=== PATIENT | female | born 1935 | race Two or more races ===

== ENCOUNTER 2018-10-14 21:55 | Inpatient (IN) | payer OTHER ==
[~2018-10-14] VITALS: Ht 160 cm; Wt 82.6 kg
[~2018-10-14 21:55] MED LIST: BYSTOLIC10 M1 PO; CALTRATE; CENTRUM SILVER; COL100 PO; COZ50 PO; ECO81 PO; FER300 PO; FLO4 PO; FOL1 PO; FOS10 PO; GLU500 PO; HUMULIN R100 U/1 M1 SC; HYDRALAZINE HCL25 MG PO; L20 PO; METOPROLOL TART25 M1 PO; NEBIVOLOL PO; THERAGRAN-M1 TA4 PO; VESICARE5 M1 PO; VITAMIN B121000 MC3 PO; VITC PO; ZOC20 PO; [UNRECOGNIZED DRUG - CODE] IV
--- NOTE | 2018-10-14 22:32 | NUR ---
PT RESTING IN BED, SMILING WITH NO SIGNS OF DISTRESS AT THIS TIME. PT BIB [facility] FROM HOME S/P ASSIST TO FLOOR BY FAMILY AND PREVIOUS FALL TODAY. PER FAMILY, PT NOTED WITH INCREASED GENERALIZED WEAKNESS AND CONFUSION. PT NOTED TO BE CONFUSED, ABLE TO ANSWER QUESTIONS AND FOLLOW COMMANDS. PT WITH HX OF DEMENTIA. PT ALSO NOTED WITH GENERALIZED WEAKNESS. FAMILY AT BEDSIDE.
[2018-10-14 23:18] LABS: BASOPHIL % 0.1 % (0-2); PLATELET COUNT 241 x10^3mcL (130-400)
[2018-10-14 23:19] LABS: CARBON DIOXIDE 28.5 mmol/L (21-32); CHLORIDE SERUM 104 mmol/L (98-107); CREATININE SERUM 0.8 mg/dL (0.6-1.0); GLUCOSE SERUM 144 mg/dL (74-106); POTASSIUM SERUM 3.9 mmol/L (3.5-5.1); SODIUM SERUM 139 mmol/L (136-145)
--- NOTE | 2018-10-14 23:21 | NUR ---
STRAIGHT CATH DONE FOR URINE SAMPLE WITH TING CHAPARRO.
[2018-10-14 23:24] LABS: ALBUMIN 3.6 g/dL (3.4-5.0); ALKALINE PHOSPHATASE 56 U/L (46-116); ALT/SGPT 20 U/L (14-59); AST/SGOT 13 U/L (15-37); BILIRUBIN TOTAL 0.47 mg/dL (0.20-1.00); HDL CHOLESTEROL 45 mg/dL (40-60); MAGNESIUM 1.9 mg/dL (1.8-2.4); PHOSPHOROUS 2.9 mg/dL (2.5-4.9); TOTAL PROTEIN, SERUM 7.2 g/dL (6.4-8.2)
[2018-10-14 23:25] LABS: microscopic required? NO
[2018-10-14 23:26] LABS: CHOLESTEROL 125 mg/dL (<200)
[2018-10-14 23:28] LABS: RED CELL DISTRIBUTION WIDTH 15.8 % (11.5-14.5)
[2018-10-15 00:01] LABS: urine erythrocyte NEGATIVE (NEGATIVE)
--- NOTE | 2018-10-15 00:22 | NUR ---
PT OFF OF UNIT TO RADIOLOGY VIA [facility].
--- NOTE | 2018-10-15 01:45 | NUR ---
PT RESTING IN BED WITH FAMILY AT BEDSIDE WITH NO SIGNS OF DISTRESS AT THIS TIME.
--- NOTE | 2018-10-15 02:02 | NUR ---
REPORT GIVEN TO CHANELLE CHAPARRO.
[2018-10-15 02:18] LABS: CHOLESTEROL/HDL RATIO 2.8
--- NOTE | 2018-10-15 02:20 | NUR ---
RECEIVED FROM ER, TRANSPORTED VIA [facility]. AWAKE AND ALERT, PRIMARILY GUJARAT/HERON SPEAKING, BUT ABLE TO STATE NAME AND WHERE SHE WAS WHEN ASKED IN [place]. DAUGHTER HELPED WITH TRANSLATION. PT HAS HX OF DEMENTIA. ADMITTED DUE TO GENERALIZED WEAKNESS, PER DAUGHTER FELL TWICE AT HOME. BREATHING EVEN AND UNLABORED ON ROOM AIR, LUNG SOUNDS CLEAR. SALINE LOCKT RIGHT FOREARM, FLUSHED WELL. NOTED +2 PITTING EDEMA TO BLE. NOTED ERYTHEMA TO RIGHT LOWER EXTREMITY. PHOTODOCUMENTATION TAKEN. PLACED BED ALARM ON. ORIENTED TO ROOM ENVIRONMENT, INSTRUCTED ON USE OF CALL LIGHT TO CALL FOR ASSISTANCE, PLACED WITHIN EASY REACH. HOB ELEVATED 30 DEG. UPPER SIDE RAILS RAISED, BED IN LOWEST POSITION.
[2018-10-15 02:25] LABS: FREE T4 1.31 ng/dL (0.76-1.46); FREE THYROXINE INDEX 3.9 ug/dL (1.4-4.5); T4(THYROXINE) 11.2 ug/dL (4.7-13.3)
--- NOTE | 2018-10-15 02:30 | NUR ---
PT TRANSFERRED TO TELE BED 250B VIA VI WITH RN TING AND EMT FERNIE. PT TRANSFERRED WITHOUT INCIDENCE.
[2018-10-15 02:49] VITALS: BP 122/47
[2018-10-15 02:58] LABS: T3 TOTAL 1.02 ng/mL
--- NOTE | 2018-10-15 03:05 | NUR ---
CALLED [facility] OF LAB, ASKED TO ADD URINE CULTURE TEST TO URINE SPECIMEN.
--- NOTE | 2018-10-15 03:16 | NUR ---
DUE CEFTRIAXONE ADMINISTERED IVPB. FAMILY MEMBERS EARLIER LEFT. PT VOIDED, ANGELA CAMACHO ATTENDED TO HER HYGIENE NEEDS. PT SPEAKING IN FRISIAN.
[2018-10-15 04:55] VITALS: BP 139/62
--- NOTE | 2018-10-15 06:18 | NUR ---
AWAKE AND ALERT, OBEYS COMMANDS. BREATHING EVEN AND UNLABORED ON ROOM AIR. SITTING ON BED. INSTRUCTED NOT TO GET OUT OF BED. VERBALIZED UNDERSTANDING. REINFORCED NEED TO USE CALL LIGHT TO CALL FOR ASSISTANCE. PLACED WITHIN EASY REACH. DEMONSTRATED USE OF CALL LIGHT. BED ALARM ON.
--- NOTE | 2018-10-15 06:19 | NUR ---
IVF INFUSING WELL. IV SITE FREE FROM ERYTHEMA OR SWELLING.
[2018-10-15 06:27] LABS: BASOPHIL % 0.2 % (0-2); PLATELET COUNT 236 x10^3mcL (130-400)
[2018-10-15 06:34] LABS: RED CELL DISTRIBUTION WIDTH 15.9 % (11.5-14.5)
[2018-10-15 06:35] LABS: CALCIUM 8.8 mg/dL (8.5-10.1); CARBON DIOXIDE 31.2 mmol/L (21-32); CHLORIDE SERUM 104 mmol/L (98-107); CREATININE SERUM 0.7 mg/dL (0.6-1.0); GLUCOSE SERUM 113 mg/dL (74-106); POTASSIUM SERUM 3.6 mmol/L (3.5-5.1); SODIUM SERUM 142 mmol/L (136-145)
--- NOTE | 2018-10-15 06:46 | NUR ---
OBEYED INSTRUCTIONS NOT TO GET UP, SITTING ON SIDE OF BED. BED ALARM ON. ASKED FOR TEA AND FABRICIO CRACKERS. PROVIDED. CALL LIGHT WITHIN EASY REACH.
[2018-10-15 08:00] VITALS: BP 157/85
--- NOTE | 2018-10-15 08:00 | NUR ---
AWAKE,ALERT AND ABLE TO VERBALIZED NEEDS. C/O GEN./ WEAKNESS AND NOTED SHAYNE. LOWER EXT. 3+ SWOLLEN, INSTRUCTED TO ELEVATE HER SHAYNE. LOWER EXTR. W/ PILLOWS AND PT. VERBALIZED UNDERSTANDING OF TEACHING GIVEN.REQUIRES. MOD. ASSIST. W/ ADL NEEDS.WILL CONT. PLAN OF CARE.CALL LIGHT W/ IN REACH.NO ACUTE DISTRESS NOTED.
[2018-10-15 12:14] VITALS: BP 116/80
--- NOTE | 2018-10-15 15:46 | NUR ---
PT. RESTING COMFORTABLY IN BED. DENIES ANY PAIN AT THIS TIME.
[2018-10-15 16:00] VITALS: BP 155/70
--- NOTE | 2018-10-15 18:45 | NUR ---
DENIES PAIN THE WHOLE DAY ,NO ACUTE DISTRESS NOTED
--- NOTE | 2018-10-15 19:35 | NUR ---
AWAKE AND ALERT, EATING DINNER. ON HIGH FOWLERS. FAMILY MEMBERS IN ROOM. PT BREATHING EVEN AND UNLABORED ON ROOM AIR. SCDS TO BLE. IVF OF NS AT 70ML/HR. COMMODE AT BEDSIDE.
[2018-10-15 21:05] VITALS: BP 140/59
--- NOTE | 2018-10-16 00:04 | NUR ---
EYES CLOSED, BREATHING EVEN AND UNLABORED ON ROOM AIR. HOB ELEVATED 30 DEG. UPPER SIDE RAILS KEPT RAISED, BED IN LOWEST POSITION. CALL LIGHT WITHIN EASY REACH.
--- NOTE | 2018-10-16 00:33 | NUR ---
AWAKE, CONFUSED. BED ALARM ON. REPOSITIONED IN BED. PAD WET. HYGIENE CARE DONE BY ANGELA CHU.
--- NOTE | 2018-10-16 01:58 | NUR ---
EYES CLOSED, BREATHING EVEN AND UNLABORED ON ROOM AIR. BED ALARM ON. CALL LIGHT WITHIN EASY REACH.
[2018-10-16 06:15] LABS: CALCIUM 9.1 mg/dL (8.5-10.1); CARBON DIOXIDE 31.2 mmol/L (21-32); CHLORIDE SERUM 106 mmol/L (98-107); CREATININE SERUM 0.7 mg/dL (0.6-1.0); GLUCOSE SERUM 125 mg/dL (74-106); POTASSIUM SERUM 4.1 mmol/L (3.5-5.1); SODIUM SERUM 143 mmol/L (136-145)
--- NOTE | 2018-10-16 06:15 | NUR ---
ANGELA CHU GAVE BED BATH, CHANGED GOWN AND LINEN
--- NOTE | 2018-10-16 06:19 | NUR ---
EYES CLOSED, BREATHING EVEN AND UNLABORED. EARLIER WOKE UP WHEN BLOOD SUGAR CHECK DONE. CALM. CALL LIGHT WITHIN EASY REACH. BED ALARM ON.
[2018-10-16 06:24] LABS: BASOPHIL % 0.2 % (0-2); PLATELET COUNT 227 x10^3mcL (130-400)
[2018-10-16 06:40] VITALS: BP 156/54
--- NOTE | 2018-10-16 07:07 | NUR ---
AWAKE AND ALERT, BREATHING EVEN AND UNLABORED. CALM. CALL LIGHT WITHIN EASY REACH. ENDORSED TO NURSE FATUMA
--- NOTE | 2018-10-16 07:20 | NUR ---
AAO X2.FORGETFUL.HERON SPEAKING MOSTLY.DENIES ANY PAIN/DISCOMFORT.LUNGS CLEAR.PT NONE TELE.IVF NS GOING AT 70 ML/HR INFUSING WELL.CALL LIGHT WITHIN REACH.INSTRUCTED TO CALL FOR ANY PAIN/DISCOMFORT.WILL CONTINUE TO MONITOR PT.
[2018-10-16 08:52] VITALS: BP 172/66
[2018-10-16 12:18] VITALS: BP 141/67
[2018-10-16 13:38] VITALS: BP 141/67
--- NOTE | 2018-10-16 14:29 | NUR ---
RECEIVED ,CHARGE NURSE THAT PT IS ACCEPTED IN [facility]. PER HEMANT PT'S DAUGHTER WILL TOUR [facility] AND WILL LET US KNOW IF THEY LIKE THE FACILITY OR NOT.
--- NOTE | 2018-10-16 15:33 | NUR ---
DAUGHTER AT BEDSIDE.INFORMED RN THAT SHE WENT TO [facility] TO CHECK THE FACILITY.WANTED TO TALK TO CORRECTIONS OFFICER REJI.ALSO ASKED HER IF SHE WANTED FOR PT TO BE TRANSFERRED TODAY, PER DAUGHTER PREFERS FOR PT TO GO TOMORROW AFTER PHYSICAL THERAPY.
--- NOTE | 2018-10-16 16:10 | NUR ---
REJIPROBATION AGENT CAME TO TALK TO PT'S DAUGHTER. PER REJI PT WILL GO TOMORROW AFTER PT IS WALKED BY PHYSICAL THERAPY.
[2018-10-16 17:01] VITALS: BP 154/73
--- NOTE | 2018-10-16 18:16 | NUR ---
NO SIGNIFICANT CHANGE NOTED.WILL ENDORSE TO NEXT SHIFT.
--- NOTE | 2018-10-16 19:49 | NUR ---
RECIEVED PT IN BED. PT A/O X2. ABLE TO VERBALIZE NEEDS AND FOLLOW SIMPLE COMMANDS. BREATHING EVEN AND UNLABORED. BS ACTIVE. CALL LIGHT WITHIN REACH. BED ALARM IN [place]. SCDS IN PLACE. BED IN LOWEST POSITION WILL CONTINUE TO MONITOR.
[2018-10-16 21:15] VITALS: BP 162/82
--- NOTE | 2018-10-16 21:35 | NUR ---
PT REFUSING ALL MEDS AT THIS TIME. FAMILY MEMBER CALLED TO TALK TO PT ABOUT TAKING MEDICATIONS.
[2018-10-17] VITALS (8 sets, daily range): BP systolic 122–197; BP diastolic 57–84; Ht 160 cm; Wt 82.6 kg
--- NOTE | 2018-10-17 01:47 | NUR ---
DR. NAVA NOTIFIED OF BP 197/78. WILL CARRY OUT ORDERS WHEN AVALIABLE.
--- NOTE | 2018-10-17 02:04 | NUR ---
PT PLACED ON TELE MONITOR 12 ORDERED. READING SR HR 72.
--- NOTE | 2018-10-17 02:24 | NUR ---
HYDRALAZINE GIVEN IVP SLOWLY WITNESSED BY RN, CHANELLE. WILL CONTINUE TO MONITOR.
--- NOTE | 2018-10-17 02:55 | NUR ---
PT FOUND WITH IV CATH OUT. PT REFUSED TO ANOTHER IV ACCESS. DR. NAVA MADE AWARE. WILL CONTINUE TO MONITOR.
--- NOTE | 2018-10-17 03:44 | NUR ---
PT TRYING TO GET OUT OF BED. USED WOUND SPECIALIST. [employer] TEACHER TREASURE CALL BACK EX. [phone]. TRANSLATED TO PT THAT SHE MUST STAY IN BED FOR HER SAFETY. PT REORIENTED BACK TO BED.
--- NOTE | 2018-10-17 06:32 | NUR ---
PT CHANGED AND REPOSITION. RESTING IN BED. NO S/SX OF DISTRESS AT THIS TIME. BED ALARM ON. BED IN LOW POSITION. CALL LIGHT WITHIN REACH. SIDE RAILS UP X2. WILL ENDORSE CARE TO ON COMING NURSE.
--- NOTE | 2018-10-17 07:58 | NUR ---
ASSUMED CARE OF PATIENT. ALERT AND ORIENTED X2 WITH PERIODS OF CONFUSION. NO COMPLAINTS OF PAIN OR DISCOMFORT. S1 AND S2 SOUNDS NOTED. +1 PITTING EDEMA TO BLE. LUNG SOUNDS CLEAR BILATERALLY, NO ADVENTITIOUS SOUNDS NOTED. BOWEL SOUNDS PRESENT IN ALL 4 QUADRANTS. GENERALIZED WEAKNESS, FALL RISK. ERYTHEMA TO RIGHT LEG NOTED. NO IV PRESENT. BED LOCKED AND IN LOWEST POSITION WITH BED ALARM ON. NONSKID SOCKS IN PLACE. CALL LIGHT WITHIN REACH. WILL CONTINUE TO MONITOR.
--- NOTE | 2018-10-17 08:53 | NUR ---
PATIENT SPEAKS NO SLOVAK, ONLY AMISH. UTILIZED TELEPHONE TRANSLATION SERVICES, PATIENT HAD QUESTIONS REGARDING WHAT MEDICATIONS SHE WAS TAKING, ANSWERED THEM FULLY. PATIENT ABLE TO SWALLOW PILLS ONE AT A TIME WITH NO ISSUE.
--- NOTE | 2018-10-17 10:27 | NUR ---
PATIENT SEEN RESTING IN ROOM. NO NEW COMPLAINTS. UTILIZED TRANSLATION SERVICES; PATIENT CONFUSED BUT REORIENTED TO SITUATION. PATIENT POSITIONED BACK INTO BED. NO NEW ISSUES.
--- NOTE | 2018-10-17 11:36 | NUR ---
BS 104. NO COVERAGE PROVIDED.
--- NOTE | 2018-10-17 14:00 | NUR ---
PATIENT RECIEVED SHOWER CARE.
--- NOTE | 2018-10-17 17:01 | NUR ---
PATIENT SEEN SITTING IN ROOM. NO APPARENT DISTRESS NOTED.
--- NOTE | 2018-10-17 17:45 | NUR ---
PATIENT REFUSING INSULIN.
--- NOTE | 2018-10-17 18:53 | NUR ---
PATIENT SEEN RESTING COMFORTABLY IN CHAIR. NO APPARENT DISTRESS NOTED. WILL HAND OFF TO NEXT RN.
--- NOTE | 2018-10-17 19:09 | NUR ---
PT RECIEVED FROM THE DAY SHIFT RN, PT IS ALERT AND ORIENTED X2, ORIENTED TO PERSON AND PLACE, NO ACUTE DISTRESS NOTED AT THIS TIME. AT THE BEDSIDE, PT IS HERON SPEAKING ONLY, SAFETY AND COMFORT MEASURES MAINTAINED, BED IN LOWEST POSITION, CALL LIGHT WITHIN REACH, WILL CONTINUE TO MONITOR AT THIS TIME.
--- NOTE | 2018-10-18 00:16 | NUR ---
PT IS RESTING IN BED WITH EYES CLOSED AT THIS TIME. NO ACUTE DISTRESS NOTED. SAFETY AND COMFORT MEASURES MAINTAINED, BED IN LOWEST POSITION, CALL LIGHT WITHIN REACH, WILL CONTINUE TO MONITOR AT THIS TIME.
--- NOTE | 2018-10-18 05:44 | NUR ---
PT HAS RESTED IN LONG INTERVALS THROUGHOUT THE SHIFT. NO ACUTE DISTRESS NOTED. PT HAS BEEN AGITATED AT TIMES AND CONFUSED. PT IS ALERT AND ORIENTED TO PERSON AND PLACE. PT IS HERON SPEAKING ONLY. CONCRETE BLOCK LAYER PHONE USED TO COMMUNICATE WITH PATIENT. PT NEEDS HAVE BEEN MET. PT AT THIS TIME IS AWAKE AND CONFUSED. BED ALARM IN PLACE. SAFETY AND COMFORT MEASURES MAINTAINED, NO IV ACCESS AT THIS TIME DUE TO PT REFUSAL OF NEW IV INSERTION, DR NAVA MADE AWARE. PT HAS OTHERWISE BEEN CALM AND COOPERATIVE WITH CARE. CALL LIGHT WITHIN REACH, WILL ENDORSE CONTINUITY OF CARE TO THE ONCOMING RN. WILL CONTINUE TO MONITOR AT THIS TIME.
[2018-10-18 06:01] VITALS: BP 169/51
[2018-10-18 06:29] LABS: CALCIUM 9.1 mg/dL (8.5-10.1); CARBON DIOXIDE 28.6 mmol/L (21-32); CHLORIDE SERUM 104 mmol/L (98-107); CREATININE SERUM 0.7 mg/dL (0.6-1.0); GLUCOSE SERUM 118 mg/dL (74-106); MAGNESIUM 2.2 mg/dL (1.8-2.4); SODIUM SERUM 141 mmol/L (136-145)
[2018-10-18 06:48] LABS: BASOPHIL % 0.6 % (0-2); PLATELET COUNT 269 x10^3mcL (130-400)
[2018-10-18 06:49] LABS: RED CELL DISTRIBUTION WIDTH 15.8 % (11.5-14.5); rbc morphology (normal/abnorm) ABNORMAL (NORMAL)
[2018-10-18 08:43] VITALS: BP 139/76
--- NOTE | 2018-10-18 09:21 | NUR ---
AT 0705 - RECEIVED PATIENT FROM NIGHT NURSE. SLEEPING. RESPIRATIONS REGULAR. AT 0800 - PATIENT AWAKE, ALERT AND APPEARS CALM AT THIS TIME. REPOSITIONED IN BED AND SAT UP FOR BREAKFAST. AT 0840 - PATIENT REFUSED TO EAT BREAKFAST, BUT DID TAKE SCHEDULED MEDICATIONS WITH ENCOURAGEMENT AND SOME APPLE SAUCE AND CRACKERS. PATIENT IS FOR DISCHARGE TO [facility] TODAY.
[2018-10-18 10:47] VITALS: BP 139/76
--- NOTE | 2018-10-18 10:50 | NUR ---
RECEIVED CALL FROM CASE MANAGEMENT. PATIENT TO BE DISCHARGED TO [facility] VIA MEDICAL TRANSPORT WITH [facility]. TRANSPORT TIME BETWEEN 1330 AND 1430 THIS AFTERNOON. PATIENT GOING TO ROOM 23
--- NOTE | 2018-10-18 11:19 | NUR ---
COPIES OF PRINTED DISCHARGE INSTRUCTIONS GIVEN AND EXPLAINED TO PATIENT'S DAUGHTER FREDRICK. TRANSFER ACKNOWLEDGEMENT SIGNED BY DAUGHTER.
--- NOTE | 2018-10-18 13:58 | NUR ---
AT 1210 - PHYSICAL THERAPY WITH PATIENT. AMBULATED IN HALLWAY USING WALKER. HAS BEEN SITTING OUT OF BED IN CHAIR. AT 1345 - REPORT GIVEN TO NURSE AT [facility]. PATIENT PREPARED FOR DISCHARGE. TAKEN OFF CARDIAC MONITORING. DAUGHTER REMAINS WITH PATIENT.
--- NOTE | 2018-10-18 14:34 | NUR ---
DISCHARGED TO [facility]IA [facility]. PATIENT'S DAUGHTER LEFT WITH PATIENT.
--- NOTE | 2018-10-18 17:02 | NUR ---
PHYSICAL THERAPY DAILY NOTES CO-SIGN All documentation done by the Assistant Dean Of Students for 10/18/18 has been reviewed. I agree with the documentation. Reviewed/Co-Signed by: Lynne Valdivia PT Documentation Done by:JEB GARCIA [facility]
== END 2018-10-18 14:35 | DRG 73 ==
LOC: ED 21:55 → DU 10-15 01:21 → MU 10-15 01:21 → DU 10-15 02:45 → MU 10-16 06:28 → DU 10-17 05:17
PROVIDERS: Emergency Medicine; Family Medicine; ADMIT Internal Medicine
DX: G90.9 Disorder of the autonomic nervous system, unspecified (principal); G93.41 Metabolic encephalopathy; N39.0 Urinary tract infection, site not specified; D68.69 Other thrombophilia; E11.65 Type 2 diabetes mellitus with hyperglycemia; R26.2 Difficulty in walking, not elsewhere classified; R60.9 Edema, unspecified; D50.9 Iron deficiency anemia, unspecified; I10 Essential (primary) hypertension; E78.5 Hyperlipidemia, unspecified; F03.90 Unspecified dementia, unspecified severity, without behavioral disturbance, psychotic disturbance, mood disturbance, and anxiety; Z68.31 Body mass index [BMI] 31.0-31.9, adult; Z96.653 Presence of artificial knee joint, bilateral; Z79.84 Long term (current) use of oral hypoglycemic drugs
CPT/HCPCS: 82962; 84439; 97110-GP; 97116-GP; 97530-GP; J0360; J0696; J1940; J7030; Q0092

== ENCOUNTER 2019-08-25 13:44 | Inpatient (IN) | payer OTHER ==
[~2019-08-25] VITALS: Ht 157.5 cm; Wt 77.6 kg
[2019-08-25 15:06] LABS: CALCIUM 9.3 mg/dL (8.5-10.1); CARBON DIOXIDE 27.2 mmol/L (21-32); CHLORIDE SERUM 104 mmol/L (98-107); CREATININE SERUM 0.8 mg/dL (0.6-1.0); GLUCOSE SERUM 148 mg/dL (74-106); POTASSIUM SERUM 3.5 mmol/L (3.5-5.1); SODIUM SERUM 142 mmol/L (136-145)
[2019-08-25 15:07] LABS: PLATELET COUNT 213 x10^3mcL (130-400)
[2019-08-25 15:11] LABS: ALBUMIN 3.6 g/dL (3.4-5.0); ALKALINE PHOSPHATASE 72 U/L (46-116); ALT/SGPT 64 U/L (14-59); AST/SGOT 97 U/L (15-37); BASOPHIL % 0 % (0-2); BILIRUBIN TOTAL 0.7 mg/dL (0.20-1.00); RED CELL DISTRIBUTION WIDTH 15.5 % (11.5-14.5); TOTAL PROTEIN, SERUM 7.3 g/dL (6.4-8.2)
[2019-08-25 16:33] LABS: UA SPECIFIC GRAVITY 1.015 (1.005-1.035); microscopic required? YES; urine erythrocyte TRACE (NEGATIVE)
[2019-08-25 18:49] LABS: CHOLESTEROL/HDL RATIO 2.9
[2019-08-25 18:53] LABS: T3 TOTAL 1.37 ng/mL
[2019-08-25 18:55] LABS: FREE T4 1.27 ng/dL (0.76-1.46); FREE THYROXINE INDEX 4.1 ug/dL (1.4-4.5); T4(THYROXINE) 12.4 ug/dL (4.7-13.3)
[2019-08-25 20:06] VITALS: BP 125/56
[2019-08-26 05:15] VITALS: BP 143/65
[2019-08-26 06:12] LABS: PLATELET COUNT 193 x10^3mcL (130-400)
[2019-08-26 06:48] LABS: CALCIUM 8.3 mg/dL (8.5-10.1); CARBON DIOXIDE 27.1 mmol/L (21-32); CHLORIDE SERUM 109 mmol/L (98-107); CREATININE SERUM 0.7 mg/dL (0.6-1.0); GLUCOSE SERUM 118 mg/dL (74-106); POTASSIUM SERUM 3.6 mmol/L (3.5-5.1); SODIUM SERUM 144 mmol/L (136-145)
[2019-08-26 08:30] LABS: BASOPHIL % 0 % (0-2); RED CELL DISTRIBUTION WIDTH 16.5 % (11.5-14.5)
[2019-08-26 09:20] VITALS: BP 159/72
[2019-08-26 12:07] VITALS: BP 113/71
[2019-08-26 16:29] VITALS: BP 130/67
[2019-08-26 21:36] VITALS: BP 174/72
[2019-08-27 05:34] VITALS: BP 142/61
[2019-08-27 06:30] LABS: BASOPHIL % 0.1 % (0-2); PLATELET COUNT 202 x10^3mcL (130-400)
[2019-08-27 06:45] LABS: CALCIUM 8.3 mg/dL (8.5-10.1); CARBON DIOXIDE 27.1 mmol/L (21-32); CHLORIDE SERUM 105 mmol/L (98-107); CREATININE SERUM 0.7 mg/dL (0.6-1.0); GLUCOSE SERUM 123 mg/dL (74-106); POTASSIUM SERUM 4.1 mmol/L (3.5-5.1); SODIUM SERUM 140 mmol/L (136-145)
[2019-08-27 07:01] LABS: RED CELL DISTRIBUTION WIDTH 16.3 % (11.5-14.5)
[2019-08-27 07:38] VITALS: BP 169/79
[2019-08-27 12:29] VITALS: BP 143/75
[2019-08-27 13:55] VITALS: BP 143/75
[2019-08-27 16:17] VITALS: BP 122/48
[2019-08-27 19:44] VITALS: BP 142/68
[2019-08-28 06:06] LABS: BASOPHIL % 0.2 % (0-2); PLATELET COUNT 181 x10^3mcL (130-400)
[2019-08-28 06:18] LABS: RED CELL DISTRIBUTION WIDTH 16.5 % (11.5-14.5)
[2019-08-28 06:30] VITALS: BP 159/65
[2019-08-28 06:39] LABS: CALCIUM 8.2 mg/dL (8.5-10.1); CARBON DIOXIDE 25.7 mmol/L (21-32); CHLORIDE SERUM 108 mmol/L (98-107); CREATININE SERUM 0.6 mg/dL (0.6-1.0); GLUCOSE SERUM 129 mg/dL (74-106); POTASSIUM SERUM 3.8 mmol/L (3.5-5.1); SODIUM SERUM 142 mmol/L (136-145)
[2019-08-28 07:29] VITALS: BP 147/81
[2019-08-28 11:24] VITALS: BP 153/77
[2019-08-28 15:45] VITALS: BP 137/63
[2019-08-28 19:50] VITALS: BP 164/81
[2019-08-29 04:55] VITALS: BP 172/73
[2019-08-29 06:17] VITALS: BP 136/66
[2019-08-29 06:32] LABS: BASOPHIL % 0.2 % (0-2); PLATELET COUNT 196 x10^3mcL (130-400)
[2019-08-29 06:50] LABS: RED CELL DISTRIBUTION WIDTH 16.1 % (11.5-14.5)
[2019-08-29 06:56] LABS: CALCIUM 8.8 mg/dL (8.5-10.1); CARBON DIOXIDE 28.2 mmol/L (21-32); CHLORIDE SERUM 106 mmol/L (98-107); CREATININE SERUM 0.6 mg/dL (0.6-1.0); GLUCOSE SERUM 123 mg/dL (74-106); POTASSIUM SERUM 3.6 mmol/L (3.5-5.1); SODIUM SERUM 141 mmol/L (136-145)
[2019-08-29 08:18] VITALS: BP 151/70
[2019-08-29 12:04] VITALS: BP 140/65
[2019-08-29] MEDS ORDERED: METOPROLOL TART25 M1 PO (15:48)
[2019-08-29] MEDS ORDERED: ELIQUIS5 MG PO (15:48)
[2019-08-29 16:14] VITALS: BP 140/65
[2019-08-29] MEDS ORDERED: MEROPENEM1 GM IV (16:26)
[2019-08-29 17:26] VITALS: BP 149/63
[2019-09-01 11:26] VITALS: Ht 157.5 cm; Wt 77.6 kg
== END 2019-08-29 18:59 | DRG 871 ==
LOC: ED 13:44 → DU 18:00 → MU 08-28 14:33
PROVIDERS: Emergency Medicine; Student in an Organized Health Care Education/Training Program; ADMIT Internal Medicine
DX: A41.9 Sepsis, unspecified organism (principal); G92 Toxic encephalopathy; N39.0 Urinary tract infection, site not specified; G45.9 Transient cerebral ischemic attack, unspecified; Z16.12 Extended spectrum beta lactamase (ESBL) resistance; B96.20 Unspecified Escherichia coli [E. coli] as the cause of diseases classified elsewhere; I48.91 Unspecified atrial fibrillation; F03.90 Unspecified dementia, unspecified severity, without behavioral disturbance, psychotic disturbance, mood disturbance, and anxiety; I10 Essential (primary) hypertension; E11.9 Type 2 diabetes mellitus without complications; D50.9 Iron deficiency anemia, unspecified; R74.0 Nonspecific elevation of levels of transaminase and lactic acid dehydrogenase [LDH]; E78.5 Hyperlipidemia, unspecified; Z96.651 Presence of right artificial knee joint
CPT/HCPCS: 36600; 82962; 83880; 84439; 90658; 97110-GP; 97116-GP; 97530-GP; G0378; J0696; J1200; J2185; J2405; J7030; J7060; Q0092